=== PATIENT | female | born 1975 | race Caucasian/White ===

== ENCOUNTER 2017-03-26 05:02 | Day surgery (SDC) | payer BC ==
[2017-03-24 10:43] LABS: HEMATOCRIT 38.2 % (36.0-48.0); HEMOGLOBIN 12.6 g/dL (12.0-16.0)
[2017-03-24 10:47] LABS: ASCORBIC ACID (UR NOT ORDER) NEG (NEG); BILIRUBIN, URINE NEGATIVE (NEG); KETONE, URINE NEGATIVE (NEG); LEUKOCYTE ESTERASE(NOT OR TRACE (NEG); WBC (NOT ORDERED) (RFLEX) 1 (0-5)
[2017-03-24 11:00] LABS: PFA (COL/EPI) 94 SEC (72-180)
[~2017-03-26 05:02] MED LIST: NORCO1 TA1 PO; TORATAB PO
[2017-07-23] MEDS ORDERED: T PO (12:37)
== END 2017-03-26 07:40 | disposition home or self-care (01) ==
LOC: SDC 05:02
PROVIDERS: Urology
DX: N20.1 Calculus of ureter (principal); Z87.442 Personal history of urinary calculi; Z53.9 Procedure and treatment not carried out, unspecified reason; Z98.890 Other specified postprocedural states
CPT/HCPCS: 74000; 81001; 84703; 85014; 85018; 85576; J2250; J3010